=== PATIENT | female | born 1970 | race Two or more races ===

== ENCOUNTER 2025-02-18 01:46 | Emergency (ER) | payer MEDICAID, SELFPAY ==
[2025-02-18 01:37] VITALS: BP 149/88; PULSE 67; RESP 16; TEMP 36.5; O2SAT 97
--- NOTE | 2025-02-18 01:48 | PD.EDHA ---
ED Headache RME/HPI General Chief Complaint: Headache Stated Complaint: HEADACHE DIZZINESS Time Seen by Provider: 02/18/25 01:49 PST Arrival date/time: 02/18/25 01:46 PDT RME / HPI RME / HPI Narrative: See [facility] for Dr. Villagomez's HPI Documentation. Related Data Home Medications ?Medication ?Instructions ?Recorded ?Confirmed cetirizine 10 mg capsule (Zyrtec) 10 mg PO QDAY 06/21/23 06/21/23 Previous Rx's ?Medication ?Instructions ?Recorded acetaminophen 300 mg-codeine 30 mg 2 tab PO Q8H PRN pain #20 tabs 02/18/25 tablet ondansetron 4 mg disintegrating 4 mg PO TID PRN nausea and 02/18/25 tablet vomiting 30 days #10 tabs scopolamine base 1 mg over 3 days 1 mg topical .q72 hours PRN 02/18/25 transdermal patch (Transderm-Scop) dizziness or vertigo #4 ea Allergies Allergy/AdvReac Type Severity Reaction Status Date / Time No Known Allergies Allergy Verified 02/18/25 01:58 PDT Review of Systems Review of Systems Systems Reviewed: All systems reviewed, normal except as documented Past Medical History Past Medical History CARDIAC: Positive Hypertension (When she is stressed out but does not need meds on a regular basis) RESPIRATORY: Positive Pneumonia (3 years ago 2020) GASTROINTESTINAL: Positive Gall Bladder Disease GENITOURINARY: Positive Genitourinary Disorders and Kidney Stones ED Exam Narrative Physical exam: See [facility] for Dr. Villagomez's Physical Exam Documentation. Course Quality Measures none Orders Category Date Time Status Bedside COVID-19 Antigen Test NOW Care 02/18/25 01:50 Completed EKG (ED ONLY) *Do not use* NOW Care 02/18/25 01:51 Completed Saline [Insert IV] NOW Care 02/18/25 01:50 Completed Straight [In and Out Catheter] X1 Care 02/18/25 01:[address] head/brain wo con Stat Exams 02/18/25 01:51 Completed EKG (ED Only) Stat Exams 02/18/25 01:51 Draft US gall bladder Stat Exams 02/18/25 01:53 Completed Alcohol, Blood Medical Stat Lab 02/18/25 02:01 Completed BNP [B-Type Natriuretic Peptide] Stat Lab 02/18/25 02:01 Completed CBC Stat Lab 02/18/25 02:01 Completed CMP [Comprehensive Metabolic Panel] Stat Lab 02/18/25 02:01 Completed CRP [C-Reactive Protein] Stat Lab 02/18/25 02:01 Completed ESR [Sed Rate (ESR)] Stat Lab 02/18/25 02:01 Completed Influenza A & B Rapid Panel Stat Lab 02/18/25 02:00 Completed Lipase Stat Lab 02/18/25 02:01 Completed Magnesium Stat Lab 02/18/25 02:01 Completed Procalcitonin Stat Lab 02/18/25 02:01 Completed Thyroid Stimulating Hormone Stat Lab 02/18/25 02:01 Completed Troponin I Stat Lab 02/18/25 02:01 Completed UA, C/S IF [Urinalysis, C/S if Indicated] Stat Lab 02/18/25 02:28 Completed ACETAMINOPHEN w/COD 300-30 [Tylenol w/Cod #3] Med 02/18/25 01:50 Discontinued 2 tab PO X1 ONE Ketorolac Inj [Toradol Inj] Med 02/18/25 01:50 Discontinued 30 mg IVP X1 ONE Ondansetron Inj [Zofran Inj] Med 02/18/25 01:50 Discontinued 4 mg IVP X1 ONE POTASSIUM CHL 10% Liq 15 ML Med 02/18/25 02:57 Discontinued 20 meq PO X1 ONE Potassium Chloride [K-Dur] Med 02/18/25 03:14 Discontinued 20 meq PO X1 ONE Scopolamine [Transderm-Scop Patch] Med 02/18/25 01:50 Discontinued 1 mg TOP X1 ONE Sodium Chloride 0.9% 1000 ml [Ns] 1,000 ml Med 02/18/25 01:50 Discontinued IV 999 mls/hr Vital Signs Vital signs: Vital Signs Temperature 97.7 F 02/18/25 01:37 PST Pulse Rate 67 02/18/25 01:37 PST Respiratory Rate 16 02/18/25 01:37 PST Blood Pressure 149/88 H 02/18/25 01:37 PST Pulse Oximetry (%) 97 02/18/25 01:37 PST Oxygen Delivery Method Room Air 02/18/25 01:37 PST Headache MDM Narrative MDM Narrative:: This section includes all my notes and documentations, including HPI, PE, and ED course. Noel Villagomez MD HPI: 54 y/o female presents with headache, bluured vision, and dizziness x approximately 24 hours. Reports spinning sensation, feeling seasick. No speech impairment. No loss of power in the arms or legs. No numbness or tingling. No chest pain or shortness of breath. No other complaints. ROS: All negative except as documented in HPI. Physical Exam: General: Alert and oriented. No acute distress when remaining still. Eyes: Conjunctivae and lids clear. EOMI. PERRL. ENT: No nasal congestion. Pharynx normal. Tympanic membrane normal bilaterally. Neck: Supple. No carotid bruit. No JVD. Heart: RRR. Lungs: No respiratory distress. Good air movement. No rhonchi, wheezing, rales. Abdomen: Soft and nontender. Legs: No clubbing, cyanosis, edema. Skin: Warm and dry. Neuro: Alert and oriented X 3. Cranial Nerves II-XII grossly intact. No peripheral motor deficits. I reviewed all diagnostic test results: My interpretation of the EKG is: Sinus rhythm (65 bpm) with nonspecific ST-T changes. My review of the Gall Bladder US report is NAD. My review of the Head/Brain CT report is: No acute findings. Blood tests and urine tests unremarkable except K 3.4. Covid/Influenza: Negative. At this point, diagnoses include: Migraine Headache Vertigo Treatment here included: IVF Zofran 4 mg IV Toradol 30 mg Two Tylenol #3 Oral KCl 20 meq Scopolamine patch She felt much better. Recommended more outpatient workup. Based on my best medical judgment, made decision no further evaluation or treatment indicated at this time. Patient understands and agrees to the discharge instructions customized and printed, see below. Discharge Instructions from Dr. Villagomez: --After evaluation, your symptoms are due to migraine headache.? Fortunately, there is no life-threatening condition.? Such as stroke or brain tumor or heart attack. --When you get home, try to get some rest in the dark.? This can be the best treatment for migraine headache. --Try to eat regular nutritious meals, maintain good hydration, decrease stress, and get regular physical exercise.? Increase oral fluid and maintain clear urine.? If dark or yellow, increase oral fluid. --Take Zofran for nausea.? With migraines, controlling your nausea as soon as possible can help. --Take Tylenol with codeine for severe pain. Scopolamine patches for dizziness with spinning sensation. --See a private doctor of your choice on 02/19/2025 for recheck and further care. Ask to review all test results and official radiology reports, to make sure you receive all necessary follow-ups and monitoring. Ask to consider a referral to see a neurologist and MRI brain imaging. --Seek immediate medical care with worsening or with any concerns. Noel Villagomez MD Patient data External records reviewed:: [facility] previous records (Reviewed prior ED records from 01/20/23. Patient was seen for Headache.) Clinical information provided by:: patient Social determinants that could affect healthcare access:: none Patient has the following chronic illnesses:: HTN, Gall Bladder Disease, Kidney Stones How is presenting disease/condition affected by chronic disease/condition?: exacerbated by Evaluation data The following diagnostics were reviewed and interpreted by me:: EKG tracing(s) (My interpretation of the EKG is: Sinus rhythm (65 bpm) with nonspecific ST-T changes. Noel Villagomez MD) Lab and/or radiology exams considered but not ordered:: None Interpretation Summary: I reviewed all diagnostic test results: My interpretation of the EKG is: Sinus rhythm (65 bpm) with nonspecific ST-T changes. My review of the Gall Bladder US report is NAD. My review of the Head/Brain CT report is: No acute findings. Blood tests and urine tests unremarkable except K 3.4. Covid/Influenza: Negative. Medications / Prescriptions Medications or Prescriptions considered but not ordered:: None Medication administrations:: Medication Administration History Discontinued Medications Acetaminophen/Codeine Phosphate (Acetaminophen W/Cod 300-30 Tablet) 2 tab PO X1 ONE Stop: 02/18/25 01:51 PST Last Admin: 02/18/25 02:22 Dose: 2 tab Documented By: ANA Sodium Chloride (Ns) 1,000 mls @ 999 mls/hr IV .Q1H1M ONE Stop: 02/18/25 02:50 Last Infusion: 02/18/25 04:26 Dose: Infused Documented By: Admin: 02/18/25 02:23 Dose: 999 mls/hr Documented By: ANA Ketorolac Tromethamine (Ketorolac Inj 30 Mg/Ml Vial) 30 mg IVP X1 ONE Stop: 02/18/25 01:51 PST Last Admin: 02/18/25 02:24 Dose: 30 mg Documented By: ANA Ondansetron HCl (Ondansetron Inj 2 Mg/Ml Inj 2 Ml) 4 mg IVP X1 ONE; Protocol Stop: 02/18/25 01:51 PST Last Admin: 02/18/25 02:24 Dose: 4 mg Documented By: ANA Potassium Chloride (Potassium Chloride 10% 20 Meq/15 Ml Udc) 20 meq PO X1 ONE Stop: 02/18/25 02:58 Last Admin: 02/18/25 03:15 Dose: Not Given Documented By: RAIMUNDO Non-Admin Reason: Discontinued Potassium Chloride (Potassium Chloride 20 Meq Tabcr) 20 meq PO X1 ONE Stop: 02/18/25 03:15 Last Admin: 02/18/25 03:41 Dose: 20 meq Documented By: RAIMUNDO Scopolamine (Scopolamine 1 Mg Tdsy) 1 mg TOP X1 ONE Stop: 02/18/25 01:51 PST Last Admin: 02/18/25 02:25 Dose: 1 mg Documented By: ANA Treatment here included: IVF Zofran 4 mg IV Toradol 30 mg Two Tylenol #3 Oral KCl 20 meq Scopolamine patch Consultations Consultation(s) initiated? (list below): No Diagnosis Differential diagnosis headache: migraine, tension headache, subarachnoid hemorrhage, headache and sinusitis Most likely diagnosis given after review of the tests above:: Migraine Headache Vertigo Admission Indicated Admission indicated?: not indicated Explain why admission is indicated or not indicated:: With significant improvement and no condition needing emergent intervention, there was no indication for admission. Admission Request Was there a request for admission?: No Disposition Plan Disposition Plan: Discharge Discharge Attestation Discharge Attestation: The patient and all family members were given an opportunity to ask questions and understood the discharge instructions. Discharge instructions specifically effects, indications for sooner follow up or return to the emergency department, and the expected course of current diagnosis. Patient condition: Stable Discharge Plan Plan Patient Disposition: HOME (Self Care) Prescriptions/Referrals Prescriptions/Med Rec: New acetaminophen-codeine 300-30 mg tablet 2 tab PO Q8H MDD 6 PRN (Reason: pain) Qty: 20 0RF scopolamine base [Transderm-Scop] 1 mg over 3 days patch 3 day 1 mg topical .q72 hours PRN (Reason: dizziness or vertigo) Qty: 4 0RF ondansetron 4 mg tablet,disintegrating 4 mg PO TID PRN (Reason: nausea and vomiting) 30 Days Qty: 10 0RF No Action Zyrtec 10 mg Capsule 10 mg PO QDAY Referrals: Bradly Gastelum MD [Primary Care Provider, Family Practice] - In 1 week Problem List Clinical Impression: Migraine headache Patient/Caregiver Discharge Instructions Discharge Activity: activity as tolerated Education Materials: ED Headache, Migraine, Classic Additional Instructions: Discharge Instructions from Dr. Villagomez: --After evaluation, your symptoms are due to migraine headache.? Fortunately, there is no life-threatening condition.? Such as stroke or brain tumor or heart attack. --When you get home, try to get some rest in the dark.? This can be the best treatment for migraine headache. --Try to eat regular nutritious meals, maintain good hydration, decrease stress, and get regular physical exercise.? Increase oral fluid and maintain clear urine.? If dark or yellow, increase oral fluid. --Take Zofran for nausea.? With migraines, controlling your nausea as soon as possible can help. --Take Tylenol with codeine for severe pain. Scopolamine patches for dizziness with spinning sensation. --See a private doctor of your choice on 02/19/2025 for recheck and further care. Ask to review all test results and official radiology reports, to make sure you receive all necessary follow-ups and monitoring. Ask to consider a referral to see a neurologist and MRI brain imaging. --Seek immediate medical care with worsening or with any concerns.? Instrucciones de jacqueline del Dr. Villagomez: ?Tras la evaluaci?n, mary s?ntomas se deben a christina migra?a. Afortunadamente, no se trata de christina afecci?n grave, lola un derrame cerebral, un tumor cerebral o un infarto. ?Al llegar a casa, intente descansar en la oscuridad. [place] puede ser el mejor remedio para la migra?a. ?Procure comer regularmente alimentos nutritivos, mantenerse kirit hidratado, reducir el estr?s y hacer ejercicio f?sico con regularidad. Aumente la ingesta de l?quidos y procure que pitts orina sea oscar. Si la orina es oscura o amarilla, aumente la ingesta de l?quidos. ?[place] Zofran para las n?useas. En el ted de las migra?as, controlar las n?useas lo antes posible puede ser de gran ayuda. ?[place] Tylenol con code?na para el dolor intenso. Parches de escopolamina para el mareo con sensaci?n de giro. ?Consulte a un m?dico privado de pitts elecci?n el 3 de 2024 para christina revisi?n y tratamiento adicional. Solicite revisar todos los resultados de las pruebas y los informes radiol?gicos oficiales para asegurarse de recibir el seguimiento y la monitorizaci?n necesarios. Solicite que se considere christina derivaci?n a un neur?logo y christina resonancia magn?emelina cerebral. ?Busque atenci?n m?dica inmediata si pitts estado empeora o si tiene alguna inquietud. Print Language: Tunisian Stand Alone Forms: Kathryn Award Info., Patient Portal Info Letter
[2025-02-18 01:51] VITALS: BMI 32.5
--- NOTE | 2025-02-18 01:51 | XR_ITS ---
Examination: CT brain head without contrast. 2-D sagittal coronal reconstructions Date and time of exam: February 18, 2025, 0311 hours INDICATIONS: Onset headache and dizziness today CTDI: vol (mGy): 51.50 DLP: (mGycm): 1000 Technique: Multiple CT axial sections of the brain have been obtained, 5 mm slice thickness. Contrast has not been administered. 2-D sagittal, coronal reconstructions have been obtained Low dose protocols were performed. One or more of the following dose reduction techniques were used; automated exposure control, adjustment of the mA and/or KV according to patient size, use of iterative reconstruction technique. Findings: No significant ventricular enlargement. Intra-axial or extra-axial hemorrhage density is not seen. No mass effect or midline shift Basal cisterns are not remarkable. Fourth ventricle is midline. Cranial vault intact. Acute left maxillary sinusitis Impression: Negative for acute hemorrhage, mass effect or midline shift Advise clinical correlation and follow-up accordingly
--- NOTE | 2025-02-18 01:51 | EKG_ITS ---
[facility] Test Date: 2025-02-18 Pat Name: CHITO LACEY Department: Room: - Gender: Female Coat Checker: : 1970 Requested By: Noel Matthews Order Number: [id number] Reading MD: Noel Matthews Measurements Intervals [place] Rate: 65 P: 19 [place]: 149 QRS: 3 QRSD: 85 T: 23 QT: 392 QTc: 408 Interpretive Statements SINUS RHYTHM POSSIBLE RIGHT VENTRICULAR CONDUCTION DELAY [RSR (QR) IN V1/V2] MODERATE VOLTAGE CRITERIA FOR LVH, CONSIDER NORMAL VARIANT [MEETS CRITERIA IN ONE OF: R(aVL), S(V1), R(V5), R(V5/V6)+S(V1)] No previous ECG available for comparison /store/S0/[id number].pdf
--- NOTE | 2025-02-18 01:53 | XR_ITS ---
Examination: Abdomen sonogram, Limited Date and time of exam: February 18, 2025, 0324 hours INDICATIONS: Onset epigastric pain today Technique: Real-time warren scale transabdominal sonographic images of the upper abdomen obtained. Findings: Gallbladder is not visualized Common bile duct 11 mm no stones. Common bile duct 2.8 cm Liver 17.9 cm fatty infiltration Normal hepatopetal portal venous flow Patent IVC IMPRESSION: Mild prominence common bile duct, clinical correlation advised, if biliary colic is a clinical consideration, recommend MRCP follow-up
[2025-02-18 02:20] VITALS: BP 148/86; PULSE 63; RESP 18; TEMP 36.8; O2SAT 96
[2025-02-18] MEDS: ACETAMINOPHEN w/COD 300-30 TABLET 2 TAB PO (02:22)
[2025-02-18] MEDS: SODIUM CHLORIDE 0.9% 1000 ML 1,000 ML 999 ML IV (02:23)
[2025-02-18] MEDS: KETOROLAC INJ 30 MG/ML VIAL IVP (02:24)
[2025-02-18] MEDS: ONDANSETRON INJ 2 MG/ML INJ 2 ML 4 MG IVP (02:24)
[2025-02-18] MEDS: SCOPOLAMINE 1 MG TDSY TOP (02:25)
[2025-02-18 02:35] LABS: Collection Type, Urine Clean Catch
[2025-02-18 02:37] LABS: Sed Rate (ESR) 11 mm/hr (0-30)
[2025-02-18 02:39] LABS: Basophils # (Auto) 0.0 Thou/mm3 (0.0-0.2); Basophils % (Auto) 0 % (0-2.5); Eosinophils # (Auto) 0.1 Thou/mm3 (0.0-0.5); Eosinophils % (Auto) 2 % (0-10); Hematocrit 39.2 % (36.0-46.0); Hemoglobin 13.7 g/dL (12.0-16.0); Immature Granulocytes Auto 0.02 Thou/mm3 (0.00-0.00); Lymphocytes # (Auto) 1.6 Thou/mm3 (1.0-4.8); Lymphocytes % (Auto) 25 % (10-50); Mean Corpuscular HGB Conc 34.9 g/dl (31.0-37.0); Mean Corpuscular Hemoglobin 34.3 pg (25.0-35.0); Mean Corpuscular Volume 98 fL (80-100); Monocytes # (Auto) 0.6 Thou/mm3 (0.0-0.8); Monocytes % (Auto) 9 % (0-12); Neutrophils # (Auto) 4.0 Thou/mm3 (1.8-7.7); Neutrophils % (Auto) 64 % (37-80); Nucleated Red Blood Cell # 0.00 Thou/mm3 (0.00-0.00); Nucleated Red Blood Cell % 0 /100 WBC (0); Platelet Count 202 Thou/mm3 (140-440); RDW Standard Deviation 46.2 fL (36.4-46.3); Red Blood Count 4.00 Miln/mm3 (4.00-5.20); White Blood Count 6.2 Thou/mm3 (3.6-11.0)
[2025-02-18 02:40] LABS: B-Type Natriuretic Peptide < 20 pg/mL (0-100)
[2025-02-18 02:41] LABS: Bilirubin,Urine Negative (Negative); Blood,Urine Negative (Negative); Clarity,Urine Clear (Clear/Hazy); Color,Urine Yellow (Lt Yel-Yel); Culture Indicated,Urine Not Indicated; Glucose, Urine Negative (Negative); Ketones,Urine Negative (Negative); Leukocyte Esterase,Urine Negative (Negative); Nitrite,Urine Negative (Negative); PH,Urine 6.0 (5.0-7.0); Protein,Urine Negative (Neg - Trace); RBC,Urine 1 /hpf (0-3); Specific Gravity,Urine 1.029 (1.001-1.035); Squamous Epithelial Cell,Urine 1 /hpf (0-5); Urobilinogen,Urine Negative mg/dL (0.0-1.0); WBC,Urine 1 /hpf (0-5)
[2025-02-18 02:49] LABS: Alanine Aminotransferase 20 U/L (10-49); Albumin, Serum 4.6 gm/dL (3.5-5.0); Albumin/Globulin Ratio 1.9 (1.2-2.2); Alcohol, Blood Medical < 3.0 mg/dL (0-10.0); Alkaline Phosphatase 101 U/L (46-116); Anion Gap 11 (7-16); Aspartate Amino Transferase 21 U/L (0-34); BUN/Creatinine Ratio 20 Ratio (12-20); Bilirubin,Total 0.3 mg/dL (0.3-1.2); Blood Urea Nitrogen 14 mg/dL (9-23); C-Reactive Protein < 0.5 mg/dL (0.0-0.9); Calcium 9.5 mg/dL (8.3-10.6); Calcium (Corrected) 9.5 mg/dL (8.5-10.1); Carbon Dioxide 24.4 mMol/L (20.0-31.0); Chloride 108 mMol/L (98-107); Creatinine (Component) 0.7 mg/dL (0.6-1.3); Estimated Creatinine Clearance 84.5 mL/min (>60); Globulin 2.4 gm/dL (2.3-3.5); Glucose 116 mg/dL (74-106); Lipase 31 U/L (12-53); Magnesium 1.9 mg/dL (1.6-2.6); Osmolality,Calculated 286 (275-295); Potassium 3.4 mMol/L (3.4-5.1); Procalcitonin < 0.04 ng/ml (0.0-0.49); Sodium 143 mMol/L (136-145); Thyroid Stimulating Hormone 2.57 uIU/mL (0.55-4.78); Total Protein 7.0 gm/dL (5.7-8.2); Troponin I < 0.002 ng/mL (0.0-0.045); eGFR > 60 See Note
[2025-02-18 03:02] LABS: Influenza A Ag Negative; Influenza B Ag Negative
--- NOTE | 2025-02-18 03:44 | PRELIM_ITS ---
CT scan of the head without intravenous contrast (axial sections with sagittal and coronal reformats). February 18, 2025 0311 hours Clinical History: Headache and dizziness Comparison: None Findings: There is no intracranial hemorrhage, extra-axial collection, mass, mass-effect or midline shift. There is good warren-white differentiation. There is no CT evidence of acute large vascular territorial infarct. Ventricles are not enlarged or effaced. Small left middle cranial fossa arachnoid cyst suggested anterior to the left temporal lobe. Small retrocerebellar arachnoid cyst suggested. Visualized paranasal sinuses and tympanomastoid cavities are clear except for mild bilateral maxillary sinus mucosal thickening. The bony calvarium is intact. Impression: No intracranial hemorrhage, mass-effect or midline shift. No CT evidence of acute large vascular territorial infarct. Report Electronically Signed By: Evangelist Aguilar 02/18/2025 3:44:33 AM [EST]
[2025-02-18 04:26] VITALS: BP 148/86; PULSE 65; RESP 18; TEMP 37.1; O2SAT 98
--- NOTE | 2025-02-18 04:50 | PRELIM_ITS ---
Gallbladder ultrasound. February 18, 2025 03:24 hours Clinical history: Back pain Comparison: No prior study is available for comparison. Findings: The liver measures 17.9 cm in length and appears mildly enlarged with increased echogenicity, consistent with fatty infiltration. The hepatic contour is smooth. No focal hepatic lesion or intrahepatic biliary ductal dilatation is identified. The gallbladder is surgically absent. The common bile duct measures 1.1 cm in diameter and is prominent but may be within post-cholecystectomy limits. The pancreas, to the extent visualized, is unremarkable with the pancreatic head measuring 2.8 cm. The main portal vein measures 1.0 cm in diameter and demonstrates hepatopetal flow. The inferior vena cava is patent. No free intraperitoneal fluid is seen. Impression: 1. Hepatomegaly with fatty liver infiltration. 2. Post-cholecystectomy state with mild prominence of the common bile duct, likely within physiologic limits. 3. No evidence of biliary obstruction or focal hepatic lesion. Report Electronically Signed By: Sabra Sullivan 02/18/2025 4:49:26 AM [EST]
== END 2025-02-18 04:27 | disposition home or self-care (01) ==
PROVIDERS: Emergency Provider Emergency Medicine; PCP Family Medicine
DX: G43.909 Migraine, unspecified, not intractable, without status migrainosus (principal)
CPT/HCPCS: 36415; 70450; 76705; 80053; 80320; 81001; 82247; 83690; 83735; 83880; 84145; 84443; 84484; 85025; 85652; 86140; 87502; 87635; 93005; 96361; 96374; 96375; 99284; J1885; J2405; J7030; A9270; G0480

== ENCOUNTER 2025-02-22 13:01 | Emergency (ER) | payer MEDICAID, SELFPAY ==
[2025-02-22 13:02] VITALS: BMI 29.4
[2025-02-22 13:11] VITALS: BP 167/94; PULSE 80; RESP 20; TEMP 36.9; O2SAT 96
--- NOTE | 2025-02-22 13:23 | XR_ITS ---
Examination: CT abdomen and pelvis without contrast. Coronal 3-D reconstructions. Sagittal 2-D reconstructions. Date and time of exam: 02/22/2025, 4 7:00 p.m. INDICATION: Generalized abdominal pain with constipation. COMPARISON: Gallbladder ultrasound 02/18/2025. CTDI: vol (mGy): 8.11 DLP: (mGycm): 429 Technique: Axial images of the abdomen have been obtained, 3 mm slice thickness Intravenous contrast material has not been administered. Low dose protocols were performed. One or more of the following dose reduction techniques were used; automated exposure control, adjustment of the mA and/or KV according to patient size, use of iterative reconstruction technique. Findings: Lack of intravenous contrast limits evaluation of solid organs, vasculature, and lymph nodes. Lower thorax: No pleural effusions. No airspace consolidation. Very mild bronchiectasis in both lower lobes. Mild scarring and architectural distortion in the right middle lobe and adjacent right upper lobe. Likely postinflammatory micronodule in the right middle lobe measures 2 mm (axial image 31). Mild subsegmental atelectasis in the inferior lingular segment. Heart size is within normal limits. Liver: No significant hepatic enlargement. Diffuse hepatic steatosis noted. Biliary system: Cholecystectomy without evidence for concerning biliary ductal dilatation. Spleen: Within normal limits of size. No discrete mass. Pancreas: No contour deforming mass or overt main pancreatic duct dilatation. No evidence for acute inflammation. Adrenal glands: No significant findings. Kidneys: No contour-deforming solid mass. No calculi or hydronephrosis. Bladder: Suboptimal assessment due to under distention but no calculus is seen. Nonspecific bladder wall thickening noted. Pelvic organs: Nabothian cysts are present. An IUD is located at the uterine fundus. Left ovarian cyst behind the uterus measures nearly 3 cm in size. Bowel/Peritoneal cavity: Limited assessment without IV and oral contrast as well as segments of underdistention. However, there is mild rectal mural prominence and perirectal fat stranding and mesorectal fascial thickening could represent proctitis or potentially other disease. No regional lymphadenopathy. There is no evidence for diffuse colitis or diverticulitis. There is extensive fecal burden throughout the colon, moderate to large in the ascending and transverse colon and to a lesser degree in the descending colon and sigmoid colon. Retrocecal/retrocolonic course of the appendix without evidence for acute appendicitis. Lymph nodes/retroperitoneum: No pathologically enlarged lymph nodes or other masses. No hematoma or other abnormal collections. Vessels: Normal caliber abdominal aorta. Compression of the left common iliac vein between the right common iliac artery and underlying vertebra noted, compatible with May-Thurner syndrome. Abdominal/Pelvic wall: Very small fat-containing umbilical hernia noted. Musculoskeletal: No recent fractures or tumor suspicious lytic or blastic lesions. Very mild multilevel spinal degenerative changes and sacroiliac osteoarthrosis. Slight reverse S-shaped thoracolumbar scoliosis. IMPRESSION: Mild rectal mural prominence and perirectal fat stranding along with mesorectal fascial thickening could represent proctitis or potentially other disease. No regional lymphadenopathy. No evidence for diffuse colitis or diverticulitis. There is extensive fecal burden throughout the colon, moderate to large in the ascending and transverse colon and to a lesser degree in the descending colon and sigmoid colon. Retrocecal/retrocolonic course of the appendix without evidence for acute appendicitis. Hepatic steatosis. May-Thurner syndrome. IUD at the uterine fundus. Left ovarian cyst measuring 3 cm.
--- NOTE | 2025-02-22 13:25 | PD.EDRME ---
Rapid Medical Screening Exam RME Arrival date/time: 02/22/25 13:01 54-year-old female presents to the emergency department today for complaints of constipation Chief Complaint: General Adult/Misc Complain Vital signs: Vital Signs Temperature 98.4 F 02/22/25 13:11 Pulse Rate 80 02/22/25 13:11 Respiratory Rate 20 02/22/25 13:11 Blood Pressure 167/94 H 02/22/25 13:11 Pulse Oximetry (%) 96 02/22/25 13:11 Oxygen Delivery Method Room Air 02/22/25 13:11 Vital signs reviewed by provider: Yes Exam: On exam patient is mild tenderness lower abdomen patient reports constipation Clinical Impression: Lab work and imaging ordered patient medicated
[2025-02-22 13:46] LABS: Basophils # (Auto) 0.0 Thou/mm3 (0.0-0.2); Basophils % (Auto) 0 % (0-2.5); Eosinophils # (Auto) 0.1 Thou/mm3 (0.0-0.5); Eosinophils % (Auto) 1 % (0-10); Hematocrit 39.9 % (36.0-46.0); Hemoglobin 13.9 g/dL (12.0-16.0); Immature Granulocytes Auto 0.04 Thou/mm3 (0.00-0.00); Lymphocytes # (Auto) 1.1 Thou/mm3 (1.0-4.8); Lymphocytes % (Auto) 10 % (10-50); Mean Corpuscular HGB Conc 34.8 g/dl (31.0-37.0); Mean Corpuscular Hemoglobin 34.2 pg (25.0-35.0); Mean Corpuscular Volume 98 fL (80-100); Monocytes # (Auto) 0.8 Thou/mm3 (0.0-0.8); Monocytes % (Auto) 7 % (0-12); Neutrophils # (Auto) 9.0 Thou/mm3 (1.8-7.7); Neutrophils % (Auto) 82 % (37-80); Nucleated Red Blood Cell # 0.00 Thou/mm3 (0.00-0.00); Nucleated Red Blood Cell % 0 /100 WBC (0); Platelet Count 234 Thou/mm3 (140-440); RDW Standard Deviation 46.8 fL (36.4-46.3); Red Blood Count 4.06 Miln/mm3 (4.00-5.20); White Blood Count 11.1 Thou/mm3 (3.6-11.0)
[2025-02-22 14:00] LABS: Collection Type, Urine Clean Catch
[2025-02-22 14:05] LABS: Alanine Aminotransferase 70 U/L (10-49); Albumin, Serum 4.6 gm/dL (3.5-5.0); Albumin/Globulin Ratio 1.9 (1.2-2.2); Alkaline Phosphatase 86 U/L (46-116); Anion Gap 10 (7-16); Aspartate Amino Transferase 30 U/L (0-34); BUN/Creatinine Ratio 23 Ratio (12-20); Bilirubin,Total 0.6 mg/dL (0.3-1.2); Blood Urea Nitrogen 14 mg/dL (9-23); Calcium 9.3 mg/dL (8.3-10.6); Calcium (Corrected) 9.3 mg/dL (8.5-10.1); Carbon Dioxide 24.4 mMol/L (20.0-31.0); Chloride 107 mMol/L (98-107); Creatinine (Component) 0.6 mg/dL (0.6-1.3); Estimated Creatinine Clearance 105.4 mL/min (>60); Globulin 2.4 gm/dL (2.3-3.5); Glucose 94 mg/dL (74-106); Lipase 24 U/L (12-53); Osmolality,Calculated 281 (275-295); Potassium 3.5 mMol/L (3.4-5.1); Sodium 141 mMol/L (136-145); Total Protein 7.0 gm/dL (5.7-8.2); eGFR > 60 See Note
[2025-02-22 14:10] LABS: HCG Qualitative,Urine Negative
[2025-02-22 14:12] LABS: Bilirubin,Urine Negative (Negative); Blood,Urine 3+ (Negative); Clarity,Urine Clear (Clear/Hazy); Color,Urine Lt-Yellow (Lt Yel-Yel); Culture Indicated,Urine Not Indicated; Glucose, Urine Negative (Negative); Ketones,Urine Negative (Negative); Leukocyte Esterase,Urine Negative (Negative); Nitrite,Urine Negative (Negative); PH,Urine 6.5 (5.0-7.0); Protein,Urine Negative (Neg - Trace); RBC,Urine 12 /hpf (0-3); Specific Gravity,Urine 1.011 (1.001-1.035); Squamous Epithelial Cell,Urine 1 /hpf (0-5); Urobilinogen,Urine Negative mg/dL (0.0-1.0); WBC,Urine 1 /hpf (0-5)
[2025-02-22] MEDS: MAGNESIUM CITRATE 300 ML BTL PO (14:32)
--- NOTE | 2025-02-22 18:59 | EDNOTE_ITS ---
ED Abdominal Pain RME/HPI General Chief Complaint: General Adult/Misc Complain Stated complaint: CONSTIPATION SINCE YESTERDAY Time seen by provider: 02/22/25 15:24 Arrival date/time: 02/22/25 13:01 54-year-old female patient came in for evaluation regarding pelvic discomfort/abdominal pain, has been ongoing since yesterday. Patient told me that has been constipated since yesterday. No fever no vomiting no dysuria no other complaints noted no medications taken prior to ER visit. RME / HPI RME / HPI narrative: 02/22/25 13:01 54-year-old female presents to the emergency department today for complaints of constipation Exam: On exam patient is mild tenderness lower abdomen patient reports constipation Impression: Lab work and imaging ordered patient medicated Related Data Home Medications ?Medication ?Instructions ?Recorded ?Confirmed cetirizine 10 mg capsule (Zyrtec) 10 mg PO QDAY 06/21/23 Previous Rx's ?Medication ?Instructions ?Recorded acetaminophen 300 mg-codeine 30 mg 2 tab PO Q8H PRN pa in #20 tabs 02/18/25 tablet ondansetron 4 mg disintegrating 4 mg PO TID PRN nausea and 02/18/25 tablet vomiting 30 days #10 tabs scopolamine base 1 mg over 3 days 1 mg topical .q72 ho urs PRN 02/18/25 transdermal patch (Transderm-Scop) dizziness or vertig o #4 ea magnesium citrate (OneLAX 300 ml PO QDAY PRN constipat ion 02/22/25 Magnesium Citrate oral solution) #600 mL Allergies Allergy/AdvReac Type Severity Reaction Status Date / Time No Known Allergies Allergy Verified 02/22/25 13:05 Review of Systems Review of Systems Narrative Review of Systems: Review of system reviewed and within normal limits except mentioned in HPI ED Exam Narrative Physical exam: VITAL SIGNS: Reviewed. GENERAL APPEARANCE: Alert and interactive, follows commands, no acute distress, HEAD AND FACE: Non-traumatic. ENT: PERRL, pink conjunctivitis, eyelid no trauma, Mucous membrane moist. NECK: Supple, nontender, no nuchal rigidity. CHEST: No tenderness, no crepitus, no paradoxical movement, no retractions. LUNGS: Clear, well ventilated, symmetric, no rales, no wheezing, no ronchi, no stridor, good breath sounds bilaterally. HEART: Regular rate, regular rhythm, no murmur, no gallops. ABDOMEN: Soft, positive bowel sounds, nondistended, no guarding, nontender, no rebound, no masses, RECTAL: Deferred. GENITAL: Deferred. NEUROLOGICAL: Gross motor function intact sensory function intact, Appropriate for age. MUSCULOSKELETAL: low back nontender, full range of motion. EXTREMITIES: Nontender, full range of motion. SKIN: Color pink, dry, no rash, no lacerations, no abrasions, no contusions. LYMPHATICS: Deferred. Course Quality Measures none Orders Category Date Time Status CT abdomen pelvis wo con Stat Exams 02/22/25 13:23 Completed CBC Stat Lab 02/22/25 13:32 Completed Comprehensive Metabolic Panel Stat Lab 02/22/25 13:32 Completed HCG Qualitative,Urine Stat Lab 02/22/25 13:55 Completed Lipase Stat Lab 02/22/25 13:32 Completed UA, C/S IF [Urinalysis, C/S if Indicated] Stat Lab 02/22/25 13:55 Completed Magnesium Citrate Liqd [Citrate of Magnesia Liqd] Med 02/22/25 13:23 Discontinued 300 ml PO X1 ONE Vital Signs Vital signs: Vital Signs Temperature 98.4 F 02/22/25 13:11 Pulse Rate 80 02/22/25 13:11 Respiratory Rate 20 02/22/25 13:11 Blood Pressure 167/94 H 02/22/25 13:11 Pulse Oximetry (%) 96 02/22/25 13:11 Oxygen Delivery Method Room Air 02/22/25 13:11 Abdominal Pain [facility] Narrative [facility] Narrative:: 54-year-old female patient came in for evaluation regarding pelvic discomfort/abdominal pain, has been ongoing since yesterday. Patient told me that has been constipated since yesterday. No fever no vomiting no dysuria no other complaints noted no medications taken prior to ER visit. Patient's workup today all came back unremarkable CT scan of the abdomen showed Mild rectal mural prominence and perirectal fat stranding along with mesorectal fascial thickening could represent proctitis or potentially other disease. No regional lymphadenopathy. No evidence for diffuse colitis or diverticulitis. There is extensive fecal burden throughout the colon, moderate to large in the ascending and transverse colon and to a lesser degree in the descending colon and sigmoid colon. Retrocecal/retrocolonic course of the appendix without evidence for acute appendicitis. Hepatic steatosis. May-Thurner syndrome. IUD at the uterine fundus. Left ovarian cyst measuring 3 cm. Patient was given mag citrate in the emergency room with significant bowel movement. Patient verbalized significant improvement of symptoms. Patient was advised to follow-up closely with PCP and asked her PCP to remove her IUD. She does not need it anymore. Has been there for more than 10 years. They probably forgot it. Patient data External records reviewed:: None Clinical information provided by:: patient Social determinants that could affect healthcare access:: none Patient has the following chronic illnesses:: None How is presenting disease/condition affected by chronic disease/condition?: no c hronic disease Evaluation data The following diagnostics were reviewed and interpreted by me:: lab results and radiology exam(s) Lab and/or radiology exams considered but not ordered:: None Interpretation Summary: See results MDM Medications / Prescriptions Medications or Prescriptions considered but not ordered:: None Medication administrations:: Medication Administration History Discontinued Medications Magnesium Citrate (Magnesium Citrate 300 Ml Btl) 300 ml PO X1 ONE Stop: 02/22/25 13:24 Last Admin: 02/22/25 14:32 Dose: 300 ml Documented By: OA Comments: unable to scan Magnesium citrate Consultations Consultation(s) initiated? (list below): No Diagnosis Differential diagnosis abdominal pain: abdominal pain, constipation and gastroenteritis Most likely diagnosis given after review of the tests above:: Abdominal pain, constipation Admission Indicated Admission indicated?: not indicated Admission Request Was there a request for admission?: No Disposition Plan Disposition Plan: Discharge Discharge Attestation Discharge Attestation: The patient was given an opportunity to ask questions and understood the discharge instructions. Discharge instructions specifically effects, indications for sooner follow up or return to the emergency department, and the expected course of current diagnosis. Patient condition: Stable Discharge Plan Plan Patient Disposition: HOME (Self Care) Discharge Disposition comment: Stable Prescriptions/Referrals Prescriptions/Med Rec: New magnesium citrate [OneLAX Magnesium Citrate] Solution 300 ml PO QDAY PRN (Reason: constipation) Qty: 600 0RF No Action Zyrtec 10 mg Capsule 10 mg PO QDAY acetaminophen-codeine 300-30 mg tablet 2 tab PO Q8H MDD 6 PRN (Reason: pain) Qty: 20 0RF scopolamine base [Transderm-Scop] 1 mg over 3 days patch 3 day 1 mg topical .q72 hours PRN (Reason: dizziness or vertigo) Qty: 4 0RF ondansetron 4 mg tablet,disintegrating 4 mg PO TID PRN (Reason: nausea and vomiting) 30 Days Qty: 10 0RF Referrals: Bradly Gastelum MD [Primary Care Provider, [facility]] - In 1 week Problem List Clinical Impression: Constipation Patient/Caregiver Discharge Instructions Discharge Activity: activity as tolerated Education Materials: Treating Constipation Additional Instructions: Thank you for the opportunity for serving you today. You are stable for discharged . You are advised to: Follow-up with your PCP in 1 to 2 days Return to ED for worsening of symptoms Increase oral fluids Take medication as prescribed As your PCP to remove your IUD you do not need it anymore ,it will just give you complications Print Language: Kyrgyz Stand Alone Forms: Kathryn Award Info., Patient Portal Info Letter
== END 2025-02-22 19:40 | disposition home or self-care (01) ==
PROVIDERS: Emergency Provider Nurse Practitioner Primary Care; PCP Family Medicine
DX: K59.00 Constipation, unspecified (principal)
CPT/HCPCS: 36415; 74176; 80053; 81001; 81025; 83690; 85025; 99283; A9270